=== PATIENT | female | born 1950 | race Caucasian/White ===

== ENCOUNTER → 2017-04-30 | Outpatient (CLI) | payer MEDICARE, BC ==
[~2017-04-30] MED LIST: ATOR20TA15 PO; CHOL10008 PO; DULO1CAP2 PO; LISI10TA3 PO; VITA100064 PO
--- NOTE | 2017-04-30 11:16 | RADRPT ---
EXAM DATE/TIME: 04/30/2017 11:05 [facility] COMPARISON: No previous studies available for comparison. INDICATIONS : Pre-op arthroscopy right knee. Evaluate for pneumonia, pneumothorax, and communicable diseases. Patie nt states no chest complaints. MEDICAL HISTORY : None. SURGICAL HISTORY : Cervical spine surgery. ENCOUNTER: Initial ACUITY: 1 day PAIN SCORE: 0/10 LOCATION: Bilateral chest FINDINGS: PA and lateral views of the chest demonstrate the lungs to be symmetrically aerated without evidence of mass, infiltrate or effusion. The cardiomediastinal contours are unremarkable. Osseous structure s are intact with anterior cervical fusion plate in place. Mild degenerative hypertropic spurring rig ht-sided mid lower thoracic spine.. CONCLUSION: No acute disease. Bishop Bae MD on April 30, 2017 at 11:13 Board Certified Radiologist. This report was verified electronically.
[2017-04-30 11:19] LABS: AUTOMATED NEUTROPHIL # 2.9 TH/MM3 (1.8-7.7); BASOPHIL # 0.1 TH/MM3 (0-0.2); BASOPHIL % 2.5 % (0.0-2.0); EOSINOPHIL # 0.2 TH/MM3 (0-0.4); EOSINOPHIL % 3.2 % (0.0-4.0); HEMATOCRIT 37.5 % (35.0-46.0); HEMOGLOBIN 12.8 GM/DL (11.6-15.3); LYMPH % 33.3 % (9.0-44.0); MEAN CELL VOLUME 89.9 FL (80.0-100.0); MEAN CORPUSCULAR HEMOGLOBIN 30.7 PG (27.0-34.0); MEAN CORPUSCULAR HGB CONC 34.2 % (32.0-36.0); MEAN PLATELET VOLUME 8.2 FL (7.0-11.0); MONO % 10.8 % (0.0-8.0); MONOCYTE # 0.6 TH/MM3 (0-0.9); NEUT % 50.2 % (16.0-70.0); PLATELET COUNT 316 TH/MM3 (150-450); RED BLOOD COUNT 4.17 MIL/MM3 (4.00-5.30); RED CELL DISTRIBUTION WIDTH 13.8 % (11.6-17.2); WHITE BLOOD COUNT 5.9 TH/MM3 (4.0-11.0)
[2017-04-30 11:26] LABS: PROTHROMBIN TIME - PATIENT 10.1 SEC (9.8-11.6)
[2017-04-30 11:53] LABS: BICARBONATE 29.2 MEQ/L (21.0-32.0); CALCIUM 9.5 MG/DL (8.5-10.1); CREATININE 0.85 MG/DL (0.50-1.00)
--- NOTE | 2017-04-30 11:55 | EKG ---
Date Performed: 04/30/2017 Time Performed: 10:49:06 PTAGE: 66 years EKG: Sinus bradycardia Possible inferior infarct - age undetermined Abnormal ECG NO PREVIOUS TRACING DOCTOR: Mando Estrada Interpretating Date/Time 04/30/2017 11:54:47
[2017-04-30 12:33] LABS: BACTERIA, URINE RARE /hpf; BILIRUBIN, URINE NEG (NEG); BLOOD, URINE NEG (NEG); GLUCOSE,URINE NEG (NEG); KETONE, URINE NEG (NEG); MUCUS URINE FEW /lpf (OCC); NITRITE,URINE NEG (NEG); PH, URINE 5.5 (5.0-8.5); SQUAMOUS EPITHELIAL CELL URINE 1 /hpf (0-5); URINE COLOR LIGHT-YELLOW (YELLW/STRAW); URINE LEUKOCYTE ESTERASE SMALL (NEG)
== END ==
LOC: CPRE 09:59
PROVIDERS: ATTEND Orthopaedic Surgery
DX: Z01.810 Encounter for preprocedural cardiovascular examination (principal); Z01.812 Encounter for preprocedural laboratory examination; Z01.818 Encounter for other preprocedural examination; S83.241D Other tear of medial meniscus, current injury, right knee, subsequent encounter; R94.31 Abnormal electrocardiogram [ECG] [EKG]; X58.XXXD Exposure to other specified factors, subsequent encounter
CPT/HCPCS: 36415; 71046; 80048; 81001; 85025; 85610; 93005

== ENCOUNTER → 2017-05-07 | Day surgery (SDC) | payer MEDICARE, BC ==
--- NOTE | 2017-05-04 16:21 | MH ---
cc: ILIANA BHATT DATE OF ADMISSION 05/07/2017 ADMISSION DIAGNOSIS Medial meniscus tear of the right knee, chondromalacia right knee, effusion right knee and pain of the right knee. HISTORY OF THE PRESENT ILLNESS The patient is a 66-year-old white female who has experienced pain of her right knee of greater than one years' duration. She had noted the onset of her symptoms following an extended automobile trip having traveled from [place] to [place] with no direct injury to the knee having occurred during this interval of time. She was experiencing a burning type pain that she localized to the medial aspect of her knee which had been aggravated by weightbearing activities. She had been taking Advil for relief with minimal benefit being described. She presented to the undersigned physician in March of 2016 and at that time her x-ray studies did demonstrate some narrowing about the medial compartment consistent with a degenerative change but no acute bony abnormality noted. The patient was diagnosed as having tenosynovitis of her right knee for which she was prescribed diclofenac 75 mg and followed thereafter on an outpatient basis. She later underwent an MRI scan of her right knee the results of which identified a degenerative tear involving the body of the medial meniscus with marked medial compartment narrowing and diffuse chondromalacia and bony edema with a large joint effusion. These findings were reviewed with the patient with treatment options discussed. The pros and cons of further conservative management versus operative intervention that would involve arthroscopic surgery was outlined with emphasis being made that the decision to proceed with surgery would be left entirely to the patient's discretion. The patient considered her options in this regard and returned to the office thereafter for followup and further disposition. She felt that her symptoms had progressed to a point in time where she was ready to proceed with surgery as discussed and in compliance with her wishes she was scheduled for admission at this time in order that the above be accomplished. PAST MEDICAL HISTORY Her past medical history, hospitalizations and surgeries have included: 1. Anterior and posterior cervical diskectomy. 2. Right breast biopsy with benign findings. 3. Appendectomy. 4. Total abdominal hysterectomy. 5. Bilateral cataract excision. 6. Colonoscopy. 7. Laparoscopic cholecystectomy. The patient's medical illnesses include: 1. Elevated cholesterol. 2. Hypertension. 3. Depressive disorder. MEDICATIONS Her current medications: 1. Atorvastatin 20 mg daily. 2. Lisinopril 10 mg daily. 3. Duloxetine 30 mg daily. ALLERGIES The patient denies any known drug allergies. REVIEW OF SYSTEMS She wears glasses. She experiences occasional headaches as related to changes in the weather. No seizure or syncope. No sinus congestion. No epistaxis. Auditory acuity intact. No tinnitus. No bleeding gums or dysphagia. Denies cough, shortness of breath, upper respiratory infection, pneumonia or tuberculosis. No angina. She is medically managed for hypertension. Her appetite is good. Bowel movements are regular. No hepatitis. There is a history of peptic ulcer disease. Status post cholecystectomy. No hemorrhoids. No urinary tract infection. No kidney stones. No history of fractures. No psychiatric illness. Her remaining review of systems is unremarkable and noncontributory. FAMILY HISTORY 10 years this being a second marriage. is 77 years of age, described as being in good health. One daughter indicated to be in good health. Family history is positive for hypertension, diabetes, stroke and cancer of undetermined etiology. SOCIAL HISTORY The patient completed a high school education. 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 She denies active use of tobacco, ethanol consumption on a social basis. PHYSICAL EXAMINATION Height 5 feet 5 inches, weight 175 pounds. GENERAL: An alert, oriented and responsive 66-year-old white female who sits quietly upon examination table with no obvious distress. HEAD, EYES, EARS, NOSE, AND THROAT: Pupils are equally round and reactive to light. Extraocular movements full. Sclerae clear. External nares clear. External auditory canals clear. Semi edentulous in the mandibular distribution. Mucous membranes pink and moist. Pharynx clear. NECK: Supple. There is an active range of motion with minimal discomfort at the extremes of mobility indicated to be chronic in nature. Carotid pulse palpable bilaterally. Trachea midline. Thyroid without enlargement. LUNGS: Clear to auscultation and percussion. No CVA tenderness. No discomfort throughout the dorsal lumbar spine. HEART: Regular rhythm. No murmur or gallop. ABDOMEN: Soft, nontender. Bowel sounds present. PELVIC: Per primary care physician. EXTREMITIES: Right knee there is a mild fullness about the knee consistent with redundancy of soft tissue and minimal suggestion for effusion. Slight medial joint line tenderness without palpable deformity. Apprehension and compression sign negative. A 0-110 degree range of motion with mild discomfort at the extreme of flexion. No crepitation or instability. No collateral ligamentous laxity. Jose test and drawer sign negative. Pivot shift and Vivian sign positive for medial compartment pain. Straight-leg raising unremarkable at 80 degrees. Independent gait. NEUROLOGIC: Cranial nerves II-XII grossly intact. IMPRESSION Medial meniscus tear of the right knee, chondromalacia right knee, effusion right knee, pain right knee. PLAN Arthroscopic surgery right knee. The nature of the planned surgical procedure, the potential complications and risks associated, the expectations of surgery and the consent form were thoroughly reviewed with the patient in the presence of her prior to admission to the hospital. Shy has indicated her full understanding regarding all of the above and given consent to proceed with treatment as outlined. Medical evaluation and clearance for surgery will be completed by her primary care physician at the [facility]. MD ANDRAE Fregoso/KK /3:44 PM /4:06 PM
[~2017-05-07] VITALS: Ht 165.1 cm; Wt 79.8 kg
[~2017-05-07] MED LIST changes: +ACETAMINOPHEN 1000 MG/100 ML 100 ML IV ONE; +ACETAMINOPHEN/HYDROcodone 325 MG/5 MG TAB PO PRN; +APREPITANT 40 MG CAP ONE; +CHLORHEXIDINE GLUCONATE 2 % 1 PACK (2 CLOTHS) TOPICAL PRN; +DEXAMETHASONE SOD PHOS 4 MG/ML VIAL IV ONE; +DO NOT ADM ANY ANTICOAGULANT DRUGS PRN; +ESMOLOL HCL 100 MG/10 ML VIAL IV ONE; +FAMOTIDINE 20 MG/2 ML VIAL ONE; +GLYCOPYRROLATE 1 MG/5 ML SYRINGE IV PUSH ONE; +KETOROLAC TROMETHAMINE 30 MG/ML (IVP) VIAL IV PUSH ONE; +LACTATED RINGER'S 1000 ML INJ 1,000 ML IV ONE; +LACTATED RINGER'S 1000 ML IV PRN; +LIDOCAINE HCL 1% PF 5 ML SYRINGE OTHER ONE; +LIDOCAINE HCL 2% 50 ML VIAL ONE; +LIDOCAINE HCL 2% PF SOLN 10 ML VIAL ONE; +METOPROLOL TARTRATE 25 MG TAB PO PRN; +MIDAZOLAM HCL 2 MG/2 ML VIAL ONE; +MORPHINE SULFATE 2 MG/ML INJ IM PRN; +ONDANSETRON HCL 4 MG/2 ML VIAL ONE; +PHENYLEPH/NS 1000 MCG/10 ML SYR IV ONE; +POVIDONE IODINE 5% (ANTISEPSIS KIT) 4 APPLICATIONS EACH NARE PRN; +POVIDONE IODINE 7.5% SCRUB 118 ML BOTTLE TOPICAL SCH; +PROMETHAZINE INJ 25 MG/ML VIAL IM PRN; +PROPOFOL 200 MG/20 ML AMP IV ONE; +SODIUM CHLORID 0.9% 500 ML IV PRN; +TRIAMCINOLONE ACETONIDE 40 MG/ML VIAL ONE; +ceFAZolin 2 GM PREMIX 50 ML IV SCH; +ePHEDrine/NS 25 MG/5 ML SYRINGE IV ONE
[2017-05-07 09:30] VITALS: BP 132/85; PULSE 85; RESP 20; TEMP 97.5; O2SAT 96
--- NOTE | 2017-05-10 08:38 | MP ---
cc: ILIANA MITTAL DATE OF SURGERY: May 07, 2017 PREOPERATIVE DIAGNOSIS Medial meniscus tear of the right knee, chondromalacia right knee, effusion right knee, pain right knee. POSTOPERATIVE DIAGNOSIS Medial meniscus tear of the right knee, chondromalacia right knee, effusion right knee, pain right knee, including osteoarthritis right knee and synovial plica right knee. PROCEDURE Partial medial meniscectomy right knee and resection of synovial plica. SURGEON Iliana Mittal MD ANESTHESIA General by LMA. FORMAT Following induction of satisfactory general anesthesia by LMA insertion as completed per the Department of Anesthesia, examination of the right knee revealed a satisfactory range of motion with no appreciable ligamentous instability. The extremity proper was positioned into the surgical scheduler knee fabian, prepped with Betadine solution and draped into a sterile field in the routine manner. Prior to initiation of the actual procedure the standard time-out protocol was completed, all parameters were appropriately addressed and confirmed by operating room personnel. The arthroscopic instrumentation was introduced through stab wound and utilizing cannula with sharp and blunt trocar, the inflow irrigation by way of a medial suprapatellar portal, the arthroscope through a lateral parapatellar portal and a probe through a medial parapatellar portal. Examination of the suprapatellar pouch revealed significant reactive synovitis with a prominent synovial plica extending across the superior aspect of the suprapatellar region. There were chondromalacia changes throughout the patellofemoral articulation. Within the medial compartment a rather significant degenerative tear involving the body and posterior horn of the medial meniscus was readily identified. The adjacent articular surfaces of both the femoral condyle and the tibial plateau were completely eroded of articular cartilage with underlying subchondral bone exposed. Proliferative synovium extended into the intercondylar region. The anterior cruciate ligament was identified and noted to be intact. Examination of the lateral compartment revealed minimal articular irregularity with uniformity of the lateral meniscus. Attention was redirected to the medial compartment, utilizing a 3.8 mm Saber resector, a partial medial meniscectomy was accomplished as well as debridement of the adjacent articular surfaces. The instrument was thereafter oriented into the suprapatellar region where the previously identified plica was resected in a subtotal orientation. Upon completion of same the joint space was thoroughly lavaged and suctioned dry. An intra-articular Kenalog lidocaine injection completed, portal sites reapproximated with Steri-Strips over which Xeroform gauze and a bulky dry sterile dressing were placed. Anesthesia was discontinued. The patient thus transferred to a hospital stretcher and returned to the recovery room in satisfactory condition having tolerated her operative procedure well. Estimated blood loss approximately 10 ccs. MD ANDRAE Fregoso/TLL /8:06 AM /8:28 AM
== END | disposition home or self-care (01) ==
LOC: HSDC 05:14 → EDUNIT# 07:00
PROVIDERS: ATTEND Orthopaedic Surgery
DX: S83.241A Other tear of medial meniscus, current injury, right knee, initial encounter (principal); M22.41 Chondromalacia patellae, right knee; M65.9 Synovitis and tenosynovitis, unspecified; M67.51 Plica syndrome, right knee; M17.11 Unilateral primary osteoarthritis, right knee; E78.00 Pure hypercholesterolemia, unspecified; I10 Essential (primary) hypertension
CPT/HCPCS: 01400; 29881; J0131; J0690; J1100; J1885; J2250; J2370; J2405; J3010; J3301; J7120; J8501